=== PATIENT | male | born 1975 | race Caucasian/White ===

== ENCOUNTER 2018-01-18 10:11 | Emergency (ER) | payer SELFPAY ==
[~2018-01-18] VITALS: Ht 180.3 cm; Wt 81.7 kg
[~2018-01-18 10:11] MED LIST: ALBU90OI INH; DIPH50 PO; FAMO20 PO; IBUP600 PO; KETO10 PO; Monodox100 MG PO; Norco 5-325 Ta1 EACH PO; PRED20 PO; PSEU120ER PO; SPACE CHAMBER1 EACH MC
[2018-01-18] MEDS ORDERED: ERYT1OIN LEFTEYE (10:35)
== END 2018-01-18 10:41 | disposition home or self-care (01) ==
LOC: ER 10:11
DX: T15.92XA Foreign body on external eye, part unspecified, left eye, initial encounter (principal); Z87.891 Personal history of nicotine dependence; Z79.51 Long term (current) use of inhaled steroids; Z79.899 Other long term (current) drug therapy; W45.8XXA Other foreign body or object entering through skin, initial encounter
CPT/HCPCS: 65205; 99283

== ENCOUNTER 2018-08-30 08:58 | Emergency (ER) | payer MEDICAID ==
[~2018-08-30] VITALS: Ht 180.3 cm; Wt 81.7 kg
[~2018-08-30 08:58] MED LIST changes: +ERYT1OIN LEFTEYE
[2018-08-30 10:20] LABS: BASOPHILS ABSOLUTE AUTO 0.02 K/mm3 (0.00-0.23); BASOPHILS PERCENT AUTO 0 % (0-2); EOSINOPHILS ABSOLUTE AUTO 0.24 K/mm3 (0.00-0.68); EOSINOPHILS PERCENT AUTO 3 % (0-6); Hematocrit 40.4 % (37.0-53.0); Hemoglobin 13.9 g/dL (13.5-17.5); IMMATURE GRAN ABSOLUTE AUTO 0.02 K/mm3 (0.00-0.10); IMMATURE GRAN PERCENT AUTO 0 % (0-1); LYMPHOCYTES ABSOLUTE AUTO 2.84 K/mm3 (0.84-5.20); LYMPHOCYTES PERCENT AUTO 39 % (21-46); MONOCYTES ABSOLUTE AUTO 0.59 K/mm3 (0.16-1.47); MONOCYTES PERCENT AUTO 8 % (4-13); Mean Corpuscular HGB 31.9 pg (26.0-34.0); Mean Corpuscular HGB Conc 34.4 g/dL (31.5-36.5); Mean Corpuscular Volume 93 fL (80-100); Mean Platelet Volume 11.9 fL (9.1-12.4); NEUTROPHILS ABSOLUTE AUTO 3.52 K/mm3 (1.96-9.15); NEUTROPHILS PERCENT AUTO 49 % (41-73); Platelet Count 202 K/mm3 (150-400); RDW Coefficient Variation 12.1 % (11.7-14.2); RDW Standard Deviation 41.5 fL (35.1-46.3); Red Blood Cell Count 4.36 M/mm3 (4.30-5.90); White Blood Cell Count 7.23 K/mm3 (4.00-11.30)
[2018-08-30 10:23] LABS: Anion Gap 6 mmol/L (6-16); Blood Urea Nitrogen 15 mg/dL (8-24); Bun/Creatinine Ratio 14.9 (12.0-20.0); CO2, Blood 28 mmol/L (21-32); Calcium, Blood 8.6 mg/dL (8.5-10.1); Chloride, Blood 107 mmol/L (98-108); Creatinine, Blood 1.01 mg/dL (0.60-1.20); Glomerular Filtration Rate >60 (60-); Glucose, Blood 99 mg/dL (70-99); Potassium, Blood 4.4 mmol/L (3.5-5.5); Sodium, Blood 141 mmol/L (136-145)
[2018-08-30] MEDS ORDERED: Motion Sickness25 M1 PO (11:02)
[2018-08-30] MEDS ORDERED: Zofran Odt4 MG SL (11:02)
[2018-08-30] MEDS ORDERED: Amoxicillin500 MG PO (11:02)
== END 2018-08-30 11:26 | disposition home or self-care (01) ==
LOC: ER 08:58
PROVIDERS: Emergency Medicine
DX: H66.92 Otitis media, unspecified, left ear (principal); H83.09 Labyrinthitis, unspecified ear; Z87.891 Personal history of nicotine dependence
CPT/HCPCS: 36415; 80048; 85025; 93005; 93010; 96360; 99284-25; J7030

== ENCOUNTER 2020-03-24 14:52 | Emergency (ER) | payer MEDICAID ==
[~2020-03-24] VITALS: Ht 180.3 cm; Wt 79.4 kg
[~2020-03-24 14:52] MED LIST changes: +Amoxicillin500 MG PO; +Motion Sickness25 M1 PO; +Zofran Odt4 MG SL
[2020-03-24] MEDS ORDERED: Penicillin V P500 MG PO (15:43)
== END 2020-03-24 15:56 | disposition home or self-care (01) ==
LOC: ER 14:52
DX: H66.91 Otitis media, unspecified, right ear (principal); Z87.891 Personal history of nicotine dependence
CPT/HCPCS: 99282